=== PATIENT | female | born 1985 | race Caucasian/White ===

== ENCOUNTER 2021-12-03 17:42 | Emergency (ER) | payer OTHER, SELFPAY ==
[2021-12-03 18:50] VITALS: BP 127/63; PULSE 104; RESP 18; TEMP 37.7; O2SAT 100
--- NOTE | 2021-12-03 20:03 | ED.URI ---
HPI - URI/Sore Throat General Chief Complaint: Upper Respiratory Infection Stated Complaint: nasal drainage,stuffy nose,+covid test Time Seen by Provider: 12/03/21 19:57 Source: patient and RN notes reviewed Mode of arrival: ambulatory Limitations: no limitations History of Present Illness HPI Narrative: Patient presents today complaining of congestion, headache, fever up to 101.5, sore throat, cough. Symptoms began yesterday. She has been taking Tylenol Cold and flu, zinc, vitamin C without relief. No history of asthma or COPD. Denies shortness of breath. She has not been vaccinated against COVID-19 or influenza. She has tested positive x5 at home for COVID-19 and needs a note to excuse her from work, as her place of employment will not except at home test. MD elicited complaint: fever, cough, sore throat and nasal congestion Related Data Home Medications Medication Instructions Recorded Confirmed albuterol sulfate 2 puff INHALATION Q4-6H PRN 12/03/21 12/03/21 cetirizine 10 mg PO DAILY 12/03/21 12/03/21 hydrochlorothiazide 25 mg PO DAILY 12/03/21 12/03/21 lamotrigine 100 mg PO BID 12/03/21 12/03/21 Allergies Allergy/AdvReac Type Severity Reaction Status Date / Time adhesive Allergy Unknown Rash Unverified 12/03/21 19:17 amoxicillin Allergy Unknown Rash Unverified 12/03/21 19:17 latex Allergy Unknown Rash Unverified 12/03/21 19:17 Review of Systems Review of Systems: CONSTITUTIONAL: Denies body aches, chills, or sweats.+ Fever EYES: Denies visual changes, redness, or discharge. ENT: Denies rhinorrhea, otalgia.+ Congestion, sore throat CARDIOVASCULAR: Denies chest pain, palpitations, or edema. RESPIRATORY: Denies dyspnea.+ Cough GASTROINTESTINAL: Denies abdominal pain, nausea, vomiting, or diarrhea. GENITOURINARY: Denies dysuria or hematuria. SKIN: Denies rash, itching, or wounds. MUSCULOSKELETAL: Denies back pain, joint pain, or myalgia. NEUROLOGIC: Denies numbness, tingling, or weakness.+ Headache PSYCH: Denies depression or anxiety. PMFSH Comments At time of signature, I have reviewed and agree with nursing past medical, surgical, social and family history unless otherwise noted. Please see nursing chart for further information. There is no relevant family history pertinent to the presenting complaint Exam Narrative: GENERAL: Mildly ill-appearing, well-nourished, and in no acute distress. HEAD: Normocephalic, atraumatic. EYES: EOMI. No redness or drainage. Conjunctivae normal. ENT: Mucous membranes pink and moist. Nares congested. No rhinorrhea. TMs normal bilaterally. Throat erythematous with mild edema. No exudate. Uvula midline. NECK: Normal AROM. Supple. No lymphadenopathy. CHEST: No respiratory distress. Clear to auscultation. HEART: Regular rate and rhythm. No murmur appreciated. Normal peripheral pulses. EXTREMITIES: Normal range of motion. No edema. SKIN: Warm, dry, no rash. Capillary refill normal. Normal skin turgor. NEURO: No focal deficits. Alert and oriented x3. Gait steady. PSYCH: Normal affect. No signs of depression or anxiety. Course Course Level of Care: Express Care Visit Vital Signs Vital signs: Vital Signs Temperature 99.9 F H 12/03/21 18:50 Pulse Rate 104 H 12/03/21 18:50 Respiratory Rate 18 12/03/21 18:50 Blood Pressure 127/63 12/03/21 18:50 Pulse Oximetry 100 12/03/21 18:50 Temperature 99.9 F H 12/03/21 18:50 Pulse Rate 104 H 12/03/21 18:50 Respiratory Rate 18 12/03/21 18:50 Blood Pressure 127/63 12/03/21 18:50 Pulse Oximetry 100 12/03/21 18:50 Reviewed. Pt has been instructed to follow up with her PCP regarding her elevated blood pressure today. MDM - URI/Sore Throat Differential Diagnosis Differential diagnosis: Likely upper respiratory infection, viral infection, bronchitis, pharyngitis and other (Strep throat, COVID-19) Critical Care Time Critical Care Time Critical Care Time: No Discharge Plan Discharge Clinical Impr
== END 2021-12-03 20:10 | disposition home or self-care (01) ==
PROVIDERS: Emergency Provider Nurse Practitioner
DX: U07.1 COVID-19 (principal); F31.9 Bipolar disorder, unspecified
CPT/HCPCS: 99202; G0463